=== PATIENT | male | born 1995 | race Caucasian/White ===

== ENCOUNTER 2016-06-29 04:24 | Emergency (ER) | payer BC, OTHER ==
[~2016-06-29] VITALS: Ht 180.3 cm; Wt 68.0 kg
[2016-06-29 04:29] VITALS: TEMP 36.8; Ht 180.3 cm; Wt 68.0 kg
[2016-06-29 04:35] VITALS: O2SAT 99
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
[2016-06-29 05:07] LABS: BUN/CREATININE RATIO 6.7 (10-20); CALCIUM 8.7 mg/dl (8.5-10.1); CREATININE 1.2 mg/dl (0.60-1.40); POTASSIUM 3.1 mmol/L (3.5-5.1)
[2016-06-29] MEDS ORDERED: XYLOCAINE 1%/SOD BICARB 20 ML VIAL INFIL ONE (06:15)
[2016-06-29 06:39] VITALS: BP 115/79; PULSE 119; O2SAT 98
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
== END 2016-06-29 06:41 | disposition home or self-care (01) ==
LOC: EDBD 04:24 → C.EDB 04:25
DX: S01.01XA Laceration without foreign body of scalp, initial encounter (principal); M25.522 Pain in left elbow; Y04.0XXA Assault by unarmed brawl or fight, initial encounter; Y92.89 Other specified places as the place of occurrence of the external cause; T51.0X1A Toxic effect of ethanol, accidental (unintentional), initial encounter; F10.129 Alcohol abuse with intoxication, unspecified; Y90.8 Blood alcohol level of 240 mg/100 ml or more